=== PATIENT | male | born 1965 | race Two or more races ===

== ENCOUNTER 2024-03-11 22:29 | Emergency (ER) | payer SELFPAY ==
[~2024-03-11] VITALS: Ht 175.3 cm; Wt 100.0 kg
[2024-03-11 22:41] VITALS: BP 126/76; PULSE 76; RESP 16; TEMP 98.4
== END 2024-03-12 00:21 | disposition home or self-care (01) ==
LOC: EMS 22:33
DX: R42 Dizziness and giddiness (principal); I10 Essential (primary) hypertension
CPT/HCPCS: 99281; Z7502